=== PATIENT | female | born 1995 | race Caucasian/White ===

== ENCOUNTER 2024-09-09 05:46 | Observation (INO) | payer OTHER, SELFPAY ==
[2024-09-09 05:58] VITALS: BMI 29.3
[2024-09-09 06:01] VITALS: BP 111/76
[2024-09-09] MEDS: ZOFRAN 4 MG PO (08:24)
== END 2024-09-09 08:30 | disposition home or self-care (01) ==
LOC: LDRP 05:46
PROVIDERS: ADMITTING PHYSICIAN Obstetrics & Gynecology
DX: O47.1 False labor at or after 37 completed weeks of gestation (principal); R11.0 Nausea; O99.343 Other mental disorders complicating pregnancy, third trimester; F41.9 Anxiety disorder, unspecified; Z3A.39 39 weeks gestation of pregnancy; R10.9 Unspecified abdominal pain
CPT/HCPCS: 59899; G0378

== ENCOUNTER 2024-09-11 08:04 | Inpatient (IN) | payer OTHER, SELFPAY ==
[2024-09-11 08:38] VITALS: BP 103/70; BMI 29.3
[2024-09-11] MEDS: LR 1000 IV ×2 (08:46→16:23)
[2024-09-11 09:20] LABS: % Basophils 0.3 % (0-2); % Eosinophils 1.1 % (0-6); % Immature Granulocytes 0.7 % (0-0.5); % Lymphocytes 26.3 % (20.5-51.1); % Monocytes 6.1 % (1.7-9.3); % Neutrophils 65.5 % (42.2-75.2); Absolute Eosinophils 0.1 10^3/uL (0-0.7); Absolute Immature Granulocytes 0.1 10^3/uL (0-0.05); Absolute Lymphocytes 2.3 10^3/uL (1.2-3.4); Absolute Monocytes 0.5 10^3/uL (0.1-0.6); Absolute Neutrophils 5.8 10^3/uL (1.4-6.5); Hematocrit 36.2 % (37.0-47.0); Hemoglobin 12.6 g/dL (12.0-16.0); Mean Corp Hgb Conc. 34.8 g/dL (33.0-37.0); Mean Corpuscular Hgb 32.7 pg (27.0-31.0); Mean Platelet Volume 10.7 fL (7.4-10.4); Nucleated Red Blood Cells % 0 %; Platelet Count 156 10^3/uL (130-400); Red Blood Cell Count 3.85 10^6/uL (4.20-5.40); Red Cell Dist. Width 13.2 % (11.5-14.5); White Blood Cell Count 8.8 10^3/uL (4.8-10.8)
[2024-09-11 12:58] LABS: Urine Albumin Negative (Neg - Trace); Urine Bilirubin Negative (Negative); Urine Character Clear (Clear); Urine Color Yellow; Urine Glucose Negative (Negative); Urine Ketone Negative (Negative); Urine Leukocyte 2+ (Negative); Urine Nitrite Negative (Negative); Urine Occult Blood Negative (Negative); Urine Urobilinogen Negative (Neg - 1+); Urine pH 6.5 (5.0-9.0)
[2024-09-11 13:11] LABS: Urine Red Blood Cell 0-2 /HPF (0-2)
[2024-09-11] MEDS: FENTANYL/BUPIVACAINE 100 EPIDURAL ×2 (14:00→21:54)
[2024-09-11] MEDS: SUBLIMAZE 100 MCG EPIDURAL (14:00)
[2024-09-11] MEDS: BENADRYL 25 MG IV (17:30)
[2024-09-11] MEDS: ZOLOFT 50 MG PO (23:50)
[2024-09-11] MEDS: BENADRYL 25 MG PO (23:50)
[2024-09-11] MEDS: PRENATAL PLUS 1 TABLET PO (23:50)
[2024-09-12] MEDS: MOTRIN 600 MG PO ×4 (00:34→22:05)
[2024-09-12] MEDS: TYLENOL 650 MG PO ×3 (02:38→22:04)
[2024-09-12 05:39] LABS: Hematocrit 33.2 % (37.0-47.0); Hemoglobin 11.9 g/dL (12.0-16.0)
[2024-09-12] MEDS: ZOLOFT 50 MG PO (22:05)
[2024-09-12] MEDS: PRENATAL PLUS 1 TABLET PO (22:05)
== END 2024-09-13 11:43 | disposition home or self-care (01) | DRG 807 ==
LOC: LDRP 08:04
PROVIDERS: ADMITTING PHYSICIAN Obstetrics & Gynecology
PROC: 3E033VJ Introduction of Other Hormone into Peripheral Vein, Percutaneous Approach (ICD-10-PCS; 2024-09-11)
PROC: 10E0XZZ Delivery of Products of Conception, External Approach (ICD-10-PCS; 2024-09-11)
PROC: 10907ZC Drainage of Amniotic Fluid, Therapeutic from Products of Conception, Via Natural or Artificial Opening (ICD-10-PCS; 2024-09-11)
PROC: 4A1HXCZ Monitoring of Products of Conception, Cardiac Rate, External Approach (ICD-10-PCS; 2024-09-11)
DX: O66.0 Obstructed labor due to shoulder dystocia (principal); Z37.0 Single live birth; Z3A.39 39 weeks gestation of pregnancy; O99.344 Other mental disorders complicating childbirth; F41.9 Anxiety disorder, unspecified; F32.A Depression, unspecified; Z79.899 Other long term (current) drug therapy
CPT/HCPCS: 81003; 81015; 85014; 85018; 85025; 86780; 86850; 86900; 86901; 87086

== ENCOUNTER 2025-02-14 00:31 | Emergency (ER) | payer OTHER, SELFPAY ==
[2025-02-14] VITALS (7 sets, daily range): BP systolic 95–126; BP diastolic 60–90; BMI 22.9
[2025-02-14 01:39] LABS: Hematocrit 39.6 % (37.0-47.0); Hemoglobin 13.9 g/dL (12.0-16.0); Mean Corp Hgb Conc. 35.1 g/dL (33.0-37.0); Mean Corpuscular Volume 89.0 fL (81.0-99.0); Nucleated Red Blood Cells % 0 %; Platelet Count 176 10^3/uL (130-400); Red Cell Dist. Width 11.8 % (11.5-14.5)
[2025-02-14] MEDS: ZOFRAN 4 MG IV (01:41)
[2025-02-14 01:43] LABS: HCG, Serum Qualitative Screen Negative
[2025-02-14 02:24] LABS: ALT (SGPT) 17 U/L (0-35); AST (SGOT) 16 U/L (14-36); Albumin 4.7 g/dl (3.5-5.0); Alkaline Phosphatase 73 U/L (38-126); Blood Urea Nitrogen 10 mg/dl (7-17); Calcium 8.8 mg/dl (8.4-10.2); Carbon Dioxide 23 mmol/L (22-30); Chloride 111 mmol/L (98-107); Estimated Creatinine Clearance 106 ml/min; Glucose 112 mg/dl (70-99); Potassium 3.1 mmol/L (3.5-5.1); Sodium 143 mmol/L (135-145); Total Protein 6.9 g/dl (6.3-8.2); eGFR > 60.00
[2025-02-14 02:26] LABS: Lipase 201 U/L (23-300)
[2025-02-14] MEDS: DILAUDID 0.5 MG IV (02:52)
[2025-02-14] MEDS: MAALOX 50 PO (03:58)
[2025-02-14] MEDS: OMNIPAQUE 50 ML PO (04:41)
[2025-02-14] MEDS: PROTONIX IV 40 MG IV (04:44)
[2025-02-14] MEDS: TORADOL 15 MG IV (04:44)
--- NOTE | 2025-02-14 06:02 | ED.GENMED ---
History of Present Illness
General
Chief Complaint: Abdominal Pain
Source: patient
Exam Limitations: none
Time Seen by Provider: 02/14/25 03:37
Nursing documentation reviewed up to this point in time: agreed with
History of Present Illness
History of Present Illness:
This is a 30-year-old woman with no significant past medical history save for anxiety presents with epigastric pain that began 3 days ago. Initially accompanied with several episodes of vomiting as well as low-grade fever. Vomiting and fever have
resolved but she continues with persistent epigastric pain and was evaluated at her place of employment, [facility] yesterday where she states she underwent unremarkable laboratory studies and unremarkable CT of the abdomen and pelvis. She was
placed on Pepcid as well as Carafate. Thus far no relief of pain, in fact feels worse tonight. Pain is not worsened nor improved with meals. She denies chest pain nor back pain. No diarrhea or constipation. She denies NSAID nor alcohol use.
No history of similar episodes in the past.
No close contacts with similar symptoms.
She is concerned with ongoing epigastric pain, concerned that pain is interfering with caring for her 3 small children as well as interfering with her sleep.
She has an initial appointment with GI scheduled for next , 1 week's time.
Past History
Past History
ED Past Medical History: Psychiatric (Anxiety)
ED Past Surgical History: Appendectomy
Social History
Tobacco: Non-smoker
Alcohol: None
Personal:
Living: with family
Employment: Employed
Family History
Family History: Other (Noncontributory)
Phy Exam
Physical Exam
Physical Exam:
GENERAL: 30-year-old woman appears her stated age, awake and alert, pleasant, appears mildly uncomfortable but easily communicative. is accompanying.
EYE: anicteric
NECK: Supple, nontender, no meningismus, no significant adenopathy.
ENT: oral mucosa is moist. No rhinorrhea.
CARDIAC: Regular rate and rhythm. no murmur.
LUNGS: Clear breath sounds bilaterally, no acute respiratory distress, no wheezes/rales/rhonchi
ABDOMEN: Soft, nondistended, moderate tenderness epigastric region, no r/g, no cvat. normoactive BS.
NEUROLOGICAL: Alert and oriented x3, no focal neuro deficits.
SKIN: Warm and dry, normal color, skin intact. No rash.
MUSCULOSKELETAL: No C/C/E. peripheral pulses are full and equal b/l. No palpable tenderness.
PSYCH: Normal and appropriate interaction.
Course
Orders/Labs/Results
Orders:
Orders
02/14/25 01:15
Test Result ONCE
02/14/25 01:25
Complete Blood Count/With Diff Urgent
Comprehensive Metabolic Panel Urgent
HCG, Serum Qualitative Screen Urgent
Lipase Urgent
02/14/25 01:38
Ondansetron Injectable [Zofran] 4 mg .ROUTE .STK-MED ONE
02/14/25 01:41
Ondansetron Injectable [Zofran] 4 mg IV NOW STA
02/14/25 02:49
HYDROmorphone [Dilaudid] 0.5 mg .ROUTE .STK-MED ONE
02/14/25 02:52
HYDROmorphone [Dilaudid] 0.5 mg IV NOW STA
02/14/25 02:58
US Abdomen Complete/Upper Urgent
Comment:
Reason For Exam: severe upper abd pain with nausea
02/14/25 03:52
Mag Hydrox/Al Hydrox/Simeth [Maalox] 30 ml Phenobarb/Hyoscy/Atropine/Scop [] 10 ml Viscous Lidocaine 2% [Xylocaine Viscous Cup] 10 ml PO NOW
02/14/25 03:53
Mag Hydrox/Al Hydrox/Simeth [Maalox] 30 ml .ROUTE .STK-MED ONE
Phenobarb/Hyoscy/Atropine/Scop [] 10 ml .ROUTE .STK-MED ONE
02/14/25 03:54
Viscous Lidocaine 2% [Xylocaine Viscous Cup] 15 ml .ROUTE .STK-MED ONE
02/14/25 04:29
Iohexol [Omnipaque] See Protocol PO NOW STA
02/14/25 04:30
CT Abd/pel W Iv And Oral Contr Urgent
Comment:
Reason For Exam: upper abdominal pain
Ketorolac [Toradol] 15 mg IV NOW STA
Pantoprazole [Protonix IV] 40 mg IV NOW STA
02/14/25 07:23
Dicyclomine HCl [Bentyl] 20 mg IM NOW STA
Oxycodone/Acetaminophen [Percocet 5/325] 1 tablet PO NOW STA
Abnormal Lab Results
02/14/25
01:25
MCH 31.2 H pg
(27.0-31.0)
Potassium 3.1 L mmol/L
(3.5-5.1)
Chloride 111 H mmol/L
(98-107)
Creatinine 0.5 L mg/dL
(0.6-1.0)
Glucose 112 H mg/dl
(70-99)
02/14/25 01:25
02/14/25 01:25
Vital Signs
Initial and Last Documented VS:
Initial Vital Signs
Temp Pulse Resp BP Pulse Ox
98.5 F 84 24 126/90 98
02/14/25 00:33 02/14/25 00:33 02/14/25 00:33 02/14/25 00:33 02/14/25 00:33
Last Documented Vital Signs
Temp Pulse Resp BP Pulse Ox
98.7 F 57 16 95/60 97
02/14/25 01:30 02/14/25 05:30 02/14/25 05:30 02/14/25 05:00 02/14/25 06:04
MDM/Problems Addressed
Differential Diagnosis Includes:
Concern for acute gastritis, biliary colic/cholecystitis, pancreatitis, less likely diverticulitis, colitis.
Labs are unremarkable save for mild hypokalemia. LFTs within normal limits. Lipase is normal. hCG is negative.
Will check abdominal ultrasound.
*Radiology
Radiology exam reviewed: radiology read reviewed
*Pulse Oximetry
SaO2: 97
Oxygen Mode of Delivery: Room air
Patient hypoxic: no
*Critical Care Note
Total Time (30-74mins, 75-104mins- exclusive of procedures): Not Applicable
Update Note
Update Note:
Patient reports moderate but temporary relief of epigastric pain after an IV dose of Dilaudid.
No relief after GI cocktail.
Abdominal ultrasound is unremarkable. Normal gallbladder. Normal common bile duct.
She continues with significant epigastric tenderness to palpation. Concern for acute gastritis, peptic ulcer disease, duodenitis, colitis. Will check CT abdomen pelvis with oral and IV contrast.
Will trial an IV dose of Protonix as well as Toradol.
07:20
CT shows mild small bowel wall thickening suggesting enteritis. There is no bowel obstruction. No cholecystitis nor pancreatitis. No obstructing renal stones.
I suspect acute gastroenteritis either viral versus foodborne.
Recommend supportive measures. Limiting diet to clear liquids over the next day or 2 then slowly advance to soft bland foods.
Will give an IM dose of Bentyl.
Patient requesting a prescription for a few narcotics to help her sleep. I am hesitant to do so but will give a one-time dose of Percocet now and recommend she follow-up promptly with her PCP and follow-up with GI next week as already scheduled.
Patient is nursing her 5-month-old at home but also bottle feeds. Bentyl can cause drowsiness and infants thus recommend she skip nursing this morning. May resume this evening. A prescription for Levsin for as needed abdominal pain has been
provided which is less sedating.
ED Attending Note
-
Portions of this chart may have been created with voice recognition software.� Occasional wrong word or��sound alike� substitutions may have occurred due to the inherent limitations of voice recognition software.
Discharge Plan
Departure
Patient Disposition: Home (Routine Discharge)
Date of Disposition: 02/14/25
Time of Disposition: 07:29
Patient with high blood pressure during this ER visit?: No
Condition: Good
Discharge Problem:
Acute gastroenteritis
Instructions: Viral gastroenteritis in adults, Clear Liquid Diet
Prescriptions:
New
hyoscyamine sulfate [Levsin] 0.125 mg tablet
0.125 mg PO TIDPRN PRN (Reason: abdominal pain) Qty: 10 0RF
No Action
prenat.vits,shayla,nfq-rook-fzsfn Tablet
1 tab PO QHS
sertraline [Zoloft] 50 mg Tablet
50 mg PO QHS
acetaminophen 325 mg Tablet
650 mg PO Q4HPRN PRN (Reason: mild pain) Qty: 0 0RF
calcium carbonate [Calcium Antacid] 200 mg calcium (500 mg) Tablet,Chewable
400 mg PO Q6HPRN PRN (Reason: indigestion) Qty: 0 0RF
Referrals:
UNKNOWN - PT DOES,NOT KNOW [Family Provider]
Activity Restrictions/Additional Instructions:
Follow-up with commercial representative next week as already planned.
Interventions
Interventions:
*Risk Screen - Suicide Last Done: 02/14/25 00:33
*General Assessment Last Done: 02/14/25 03:05
*Neglect/Abuse Screening Last Done: 02/14/25 00:33
*ED- Fall Risk Assessment Last Done: 02/14/25 03:05
*ED COVID-19 Vaccine History Last Done: 02/14/25 03:05
LX-Oewyyx-Lywxoilqrm Assessment Last Done: 02/14/25 01:15
Discharge Date and Time
Print Language: [place]
[2025-02-14] MEDS: PERCOCET 5/325 1 TABLET PO (07:34)
[2025-02-14] MEDS: BENTYL 20 MG IM (07:34)
== END 2025-02-14 08:02 | disposition home or self-care (01) ==
LOC: EMR 00:31
PROVIDERS: EMERGENCY PHYSICIAN Emergency Medicine
DX: K52.9 Noninfective gastroenteritis and colitis, unspecified (principal); F41.9 Anxiety disorder, unspecified; Z90.49 Acquired absence of other specified parts of digestive tract
CPT/HCPCS: 99284; 96374; 96375; 96372; 74177; 76700; 80053; 83690; 84703; 85025; Q9967